=== PATIENT | female | born 1985 | race Caucasian/White ===

== ENCOUNTER 2022-10-29 12:27 | Outpatient (CLI) | payer OTHER, SELFPAY | END 2022-10-29 12:28 | disposition home or self-care (01) | LOC: ANHSURGERY 12:35 | PROVIDERS: Visit Provider Obstetrics & Gynecology | DX: N92.0 Excessive and frequent menstruation with regular cycle (principal); Z01.818 Encounter for other preprocedural examination | CPT/HCPCS: 36415; 86850; 86900; 86901 ==

== ENCOUNTER 2022-11-03 00:28 | Day surgery (SDC) | payer OTHER, SELFPAY ==
[2022-10-21 11:51] VITALS: BMI 44.6
--- NOTE | 2022-10-21 13:15 | PC.NURSE ---
Report to the Outpatient Waiting Room, entrance under the green pavilion located off [facility], at time _0600_ on date _11/03/22_. Planned Procedure Time: _0730_. Time changes happen often and if your time is changed the preop area will call you the afternoon before. - You and your visitor will be asked to self-screen and do not enter if you have any COVID symptoms. - Only one visitor is requested with a max of two and NO children visitors are allowed at this time. - The patient visitor may be requested to leave or wait in car when not with patient due to distancing restrictions. - A mask is optional within the hospital at this time. Patients may have clear liquids (water, carbonated beverages, clear teas, apple juice) until 3 hours prior to surgery with a maximum of 20 ounces. - No food from midnight until time of surgery -Take the following medications with a SIP of water the morning of surgery: __BUPROPRION, ESCITALOPRAM DO NOT STOP ANY OF YOUR OTHER PRESCRIPTION MEDICATIONS PRIOR TO SURGERY ?EXCEPT THE FOLLOWING Medications to discontinue per physician MULTIVIT 10/31/22 Date to take last dose__10/31/22 Please no make-up, nail persian, hairspray, perfume, deodorant, or body powder the day of surgery. No jewelry (including any body piercings) or valuables the day of surgery, leave them at home. Please take a shower or bath the night before, or the morning of, surgery with an antibacterial soap. Wear comfortable, loose fitting clothing. Children are encouraged to wear pajamas. - Jewelry must be removed prior to entering the operating room. Rings and piercings that are not removed may be cut off. - The hospital will not accept responsibility for valuables. - Please leave all valuables, including medications, at home the day of surgery. If you are going home after surgery, a licensed driver/sales workers must drive you home. - NO public transportation without another adult if you receive anesthesia. - We recommend that an adult stay with you for 24 hours following discharge. - We also recommend that you do not drive, make important decision, drink alcoholic beverages, or take any drugs that were not prescribed by your health care provider for at least 24 hours after your discharge time. Follow any additional instructions given to you from your surgeon. If you or anyone in your household have experienced Covid symptoms in the past week, please notify your surgeon or the nurse liaison at the phone number below for possible testing. Telephone instructions given to _KELECHI__and asked if any additional questions and then verbalized understanding. Patient advised to call surgeon office or pre surgery nurse liaison [phone] if any additional questions.
[2022-11-03] VITALS (12 sets, daily range): BP systolic 94–121; BP diastolic 59–78; PULSE 60–98; RESP 14–20; TEMP 36–37.1; O2SAT 92–100
[2022-11-03] MEDS: ACETAMINOPHEN 500 MG TABLET 1000 MG PO (06:17)
[2022-11-03] MEDS: LACTATED RINGERS 1,000 ML 30 ML IV CONT ×2 (06:50→09:24)
[2022-11-03] MEDS: KETOROLAC 15 MG/ML VIAL (*BKC) IV PUSH (06:51)
[2022-11-03] MEDS: SCOPOLAMINE 1.5 MG PATCH TRANSDERM (06:52)
--- NOTE | 2022-11-03 06:57 | WPDANESEPPF ---
Anes - Initial Pre Proc Eval Procedure: Operation Date: 11/03/22 07:30 Proposed Procedures p Total Laparoscopic Hysterectomy, Bilateral Salpingectomy - Mae Bahtti MD Date/Time: 11/03/22 06:57 Surgeon: Mae Bhatti MD Pre Op Diagnosis: menorrhagia Patient Data Age: 37 Gender: F Height: 1.63 m Weight: 120.6 kg Last Vital Signs Temp 36.0 C L 11/03/22 06:10 Pulse 72 11/03/22 06:10 Resp 20 11/03/22 06:10 BP 94/78 L 11/03/22 06:10 Pulse Ox 98 11/03/22 06:10 O2 Del Method Room Air 11/03/22 06:10 Allergies Allergy/AdvReac Type Severity Reaction Status Date / Time No Known Allergies Allergy Verified 11/03/22 06:11 Home Medications Medication Instructions Recorded Confirmed Type buspirone 5 mg tablet 5 mg PO BID 10/21/22 11/03/22 History escitalopram oxalate 20 mg tablet 20 mg PO DAILY 10/21/22 11/03/22 History multivitamin with minerals-folic 1 tablet PO DAILY 10/21/22 11/03/22 History acid 0.4 mg tablet norgestimate 0.25 mg-ethinyl 1 tablet PO DAILY 10/21/22 11/03/22 History estradiol 35 mcg tablet (Alejandra) Patient hx anesthesia problems: none Family hx anesthesia problems: none Results Review: All pre-operative results and documents have been reviewed as part of the pre-operative evaluation. [facility] Past Medical History Medical History (Updated 11/03/22 @ 06:57 by Miguel Ocampo MD) Anxiety Morbid obesity Social History Social History Smoking status: Never smoker Alcohol intake: never Substance use: never Substance use type: does not use Living arrangements: with family Spiritual care concerns: No Anes - Eval Final PreProcedure Day of Procedure 11/03/22 06:57 Patient weight: morbidly obese Heart: regular rate and rhythm Lungs: clear to auscultation Airway: Mallampati scale class III Neurological: alert and oriented Last oral intake: >/= 8 hours ASA classification: III Emergent: no Anesthetic plan: proceed Anesthesia type and monitoring: general ETT and standard monitoring Results Review: All pre-operative results and documents have been reviewed as part of the pre-operative evaluation. Informed Consent: The patient's anesthetic plan and its attendant risks and benefits were discussed with the patient/family/POA. Questions were solicited and answers provided to the satisfaction of the patient/family/POA.
--- NOTE | 2022-11-03 07:09 | WPDHPUPDATE1 ---
History and Physical Update Update Date/Time: 11/03/22 07:09 History and Physical has been reviewed, including an updated exam of the patient. There are NO changes in the patient's condition. Risks, benefits, and alternatives have been discussed and questions answered. Patient agrees to proceed with procedure.
[2022-11-03] MEDS: ceFAZolin 3 GM/D5W 100 ML 100 ML IVPB (07:23)
[2022-11-03] MEDS: ceFAZolin SODIUM 1 GM VIAL (07:23)
--- NOTE | 2022-11-03 09:42 | W.PM.PROC2 ---
Procedure Note - Detailed Date of Procedure 11/03/22 Pre-op Diagnosis menorrhagia Post-op Diagnosis Same Procedure Performed Total laparoscopic hysterectomy. Surgeon Mae Bhatti MD Anesthesia General Indications Heavy vaginal Findings mildly enlarged uterus, normal-appearing tubes and ovaries. Description of Procedure This patient was taken to the operating room. She was prepped and draped in the dorsal lithotomy position after induction of general anesthesia. The uterine manipulator and Juany cup were placed. This was done with a speculum and tenaculum. The speculum was placed. The cervix was grasped with a tenaculum. The stay sutures were placed at 3 and 9:00 a.m.. The stay sutures of 0 Vicryl were brought through the appropriately sized Juany cup. The tip of the MIGUEL ANGEL manipulator was placed in the intrauterine cavity. The cup was slid into place around the cervix and into the fornices. It was locked into place. The sutures were then wrapped around the handle and tied under tension. A 5 mm skin incision was made in the left upper quadrant the abdomen. A 5 mm trocar was inserted into the intrauterine cavity under direct visualization of the scope. Pneumoperitoneum was achieved. A left lower quadrant 11 mm incision was made with scalpel. An 11 mm trocar was inserted into the anterior abdominal cavity under direct visualization the scope. A 5 mm infraumbilical incision was made with a scalpel and a 5 mm trocar was inserted the intra-abdominal cavity under direct visualization of the scope. Bilateral ureteral lysis was performed. This was done from the pelvic brim down to the uterine artery. This was done with careful dissection using sharp and blunt dissection. The fallopian tubes were removed bilaterally. The mesosalpinx around the fallopian tubes were cauterized transected with LigaSure cautery. This was done in a bilateral fashion from the ovary to the uterine cornua. The fallopian tube was transected at the uterine cornu and amputated. The tube was taken out the left lower quadrant trocar site. In a stepwise fashion along the lateral aspects of the uterus the round ligament and broad ligaments were cauterized transected down to the level of the uterine arteries. A bladder flap was created in the bladder was moved distally to the end of the cervix and over the Juany cup. The bilateral uterine arteries were cauterized and transected. Colpotomy was then performed. In a circumferential fashion the vagina was transected using unipolar cautery. The incision was made down on the Juany cup. The uterus and cervix were taken out through the vagina. A pneumo occluder was placed in the vagina. The vaginal cuff was closed with a 0 V lock suture in a running fashion. The pelvis was irrigated with copious amounts antibiotic irrigation. The ureters were again examined and found to be intact and flowing freely under the uterine arteries into the bladder. The bladder was intact. It was examined directly. The vagina was irrigated with Betadine solution after removal of the Pneumo occluder. The patient was taken to recovery room. She was stable condition. Sponge lap and needle counts were correct x2. Estimated Blood Loss -50.0 Urine Output -300.0 Drains Yes Packing No Pathology Yes Complications No immediate complications Condition Stable Disposition Floor
[2022-11-03] MEDS: HYDROmorphone HCL INJ (*CRX) 1 MG/ML SYR 0.25 MG IV PUSH (10:24)
--- NOTE | 2022-11-03 10:45 | PC.NURSE ---
This patient, Cookie Beatty, was received from PACU on 11/03/22 at 1045. Patient/family oriented to unit policies and routines
[2022-11-03] MEDS: DEXTROSE 5%/0.45% SOD CHL 1,000 ML 125 ML (11:03)
[2022-11-03] MEDS: ONDANSETRON INJ 4 MG/2 ML VIAL IV PUSH (13:43)
[2022-11-03] MEDS: KETOROLAC 30 MG/ML VIAL (*BKC) IV PUSH (13:45)
[2022-11-03] MEDS: IBUPROFEN 600 MG TABLET PO (21:14)
[2022-11-03] MEDS: busPIRone HCL 5 MG TABLET PO (21:14)
[2022-11-03] MEDS: ESCITALOPRAM OXALATE 10 MG TABLET 20 MG PO (21:14)
[2022-11-04 01:20] VITALS: BP 104/50; PULSE 81; RESP 16; TEMP 36.8
[2022-11-04] MEDS: HYDROcodone/acetaminophen (*CRX) 5-325 MG TABLET 1 TAB PO ×2 (01:30→08:47)
[2022-11-04 07:50] VITALS: BP 113/68; PULSE 71; RESP 18; TEMP 36.7; O2SAT 96
--- NOTE | 2022-11-04 08:25 | PM.GYNPNOP ---
[employer] - A/P Postoperative Procedures: Procedures Operation Date: 11/03/22 07:30 Actual Procedure Side Surgeon p Total Laparoscopic Hysterectomy, Bilateral Salpingectomy Bilateral Mae Bhatti MD Postoperative day: 1 Postoperative status: doing well Postoperative plan: see orders Time Spent With Patient Time: Total time spent is greater than 50% in coordination of care (as documented) at patient's floor/unit and/or counseling patient: Time with patient: less than 15 minutes [employer]- PN:Subj Post-Op Subjective Date/time seen: 11/04/22 08:25 Subjective: patient reports feeling better, patient has no complaints and pain is well controlled Exam Const: General: healthy appearing, comfortable and no acute distress Resp: Auscultation: clear to auscultation bilaterally, no rales, no rhonchi and no wheezes Cardio: Rate: regular rate Heart sounds: no click, no murmurs and no rubs GI: Inspection: non-distended Auscultation: normal bowel sounds Extrem: General: normal to inspection, no pedal edema and no calf tenderness [employer] - PN: Obj Data Vital Signs Vital Signs: Vital Signs - 24 hr 11/03/22 09:24 11/03/22 09:35 11/03/22 09:42 Temperature 97.2 F L Pulse Rate 65 68 64 Respiratory Rate 18 18 18 Blood Pressure 111/74 109/63 102/72 Pulse Oximetry 97 96 99 Oxygen Delivery Simple Face Mask Simple Face Mask Simple Face Mask Oxygen Flow Rate 10 10 10 11/03/22 09:50 11/03/22 10:00 11/03/22 10:05 Temperature 97.3 F L Pulse Rate 66 60 73 Respiratory Rate 20 19 17 Blood Pressure 107/60 106/63 107/68 Pulse Oximetry 100 98 96 Oxygen Delivery Simple Face Mask Simple Face Mask Room Air Oxygen Flow Rate 10 10 11/03/22 10:20 11/03/22 10:30 11/03/22 11:00 Temperature 98.7 F Pulse Rate 64 60 70 Respiratory Rate 15 14 16 Blood Pressure 115/72 106/72 111/63 Pulse Oximetry 93 93 94 Oxygen Delivery Room Air Room Air Oxygen Flow Rate 11/03/22 16:15 11/03/22 19:15 11/04/22 01:20 Temperature 98.8 F 98.6 F 98.2 F Pulse Rate 98 93 81 Respiratory Rate 16 18 16 Blood Pressure 105/59 L 121/67 104/50 L Pulse Oximetry 92 Oxygen Delivery Oxygen Flow Rate Intake/Output Intake/Output: Intake & Output 11/01/22 11/02/22 11/03/22 11/04/22 23:59 23:59 23:59 23:59 Intake Total 2280 Output Total 1240 Balance 1040 Meds/Results Medications: Active Medications Generic Name Dose Route Start Last Admin Trade Name Freq PRN Reason Stop Dose Admin Hydrocodone Bitart/Acetaminophen 1 tab 11/03/22 10:35 11/04/22 01:30 Hydrocodone/Acetaminophen (*Crx) 5-325 Mg Tablet PO 1 tab Q3H PRN Administration Pain Rated 5 or Less Hydrocodone Bitart/Acetaminophen 1 tab 11/03/22 10:35 Hydrocodone/Acetaminophen (*Crx) 10-325 Mg Tablet PO Q3H PRN Pain Rated 6 or Greater Buspirone HCl 5 mg 11/03/22 17:00 11/03/22 21:14 Buspirone Hcl 5 Mg Tablet PO 5 mg BID LEAH Administration Enoxaparin Sodium 40 mg 11/04/22 09:00 Enoxaparin 40 Mg/0.4 Ml Syringe SUB-Q DAILY LEAH Escitalopram Oxalate 20 mg 11/03/22 21:00 11/03/22 21:14 Escitalopram Oxalate 10 Mg Tablet PO 20 mg HS LEAH Administration Ibuprofen 600 mg 11/03/22 10:35 11/03/22 21:14 Ibuprofen 600 Mg Tablet PO 600 mg Q6H PRN Administration Cramping Ketorolac Tromethamine 30 mg 11/03/22 10:35 11/03/22 13:45 Ketorolac 30 Mg/Ml Vial (*Bkc) IV PUSH 11/08/22 10:34 30 mg Q6H PRN Administration Pain Rated 4-6 Naloxone HCl 0.1 mg 11/03/22 10:35 Naloxone Hcl 0.4 Mg/Ml Vial IV PUSH Q2M PRN Respiratory rate less than 10 Ondansetron HCl 4 mg 11/03/22 10:35 11/03/22 13:43 Ondansetron Inj 4 Mg/2 Ml Vial IV PUSH 4 mg Q6H PRN Administration Nausea And Vomiting
[2022-11-04] MEDS: IBUPROFEN 600 MG TABLET PO (08:47)
[2022-11-04] MEDS: busPIRone HCL 5 MG TABLET PO (08:47)
[2022-11-04] MEDS: ENOXAPARIN 40 MG/0.4 ML SYRINGE SUB-Q (08:48)
--- NOTE | 2022-11-04 09:01 | WPDANESPN ---
Anes - Prog Note Post-Op Date/Time: 11/04/22 09:01 Cardiovascular status: normal Respiratory status: normal Airway patency: baseline Mental status: baseline Post-Op hydration status: normal Vital Signs: Last Vital Signs Temp 98.2 F 11/04/22 01:20 Pulse 81 11/04/22 01:20 Resp 16 11/04/22 01:20 BP 104/50 L 11/04/22 01:20 Pulse Ox 92 11/03/22 16:15 O2 Del Method Room Air 11/03/22 10:30 O2 Flow Rate 10 11/03/22 10:00 Pain Score (VAS): 0/10 I/O: Intake & Output 11/03/22 11/04/22 11/04/22 23:59 07:59 15:59 Intake Total 1980 Output Total 1200 Balance 780 Post-procedural complaints: none Patient Feedback: Patient satisfied with anesthetic care.
== END 2022-11-04 10:07 | disposition home or self-care (01) ==
LOC: ANHSURGERY 08:28 → ANHOB2 10:37
PROVIDERS: Visit Provider Obstetrics & Gynecology
PROC: 0UT9FZZ Resection of Uterus, Via Natural or Artificial Opening With Percutaneous Endoscopic Assistance (ICD-10-PCS; CPT 58571; principal; 2022-11-03 07:30)
DX: N92.0 Excessive and frequent menstruation with regular cycle (principal); N72 Inflammatory disease of cervix uteri; N83.8 Other noninflammatory disorders of ovary, fallopian tube and broad ligament; F41.9 Anxiety disorder, unspecified; E66.01 Morbid (severe) obesity due to excess calories; Z68.42 Body mass index [BMI] 45.0-49.9, adult
CPT/HCPCS: 58571; 36415; 86850; 86900; 86901; 88307; 99199; A9270; J0330; J0690; J1100; J1170; J1650; J1885; J2250; J2405; J2704; J2710; J3010; J7030; J7120